=== PATIENT | female | born 1980 | race Caucasian/White ===

== ENCOUNTER 2016-11-06 17:46 | Emergency (ER) | payer BC ==
--- NOTE | ~2016-11-06 | CT2 ---
[facility] A Service of [facility] RADIOLOGY TEXT RESULTS PATIENT: DEYSI ELLINGTON LOCATION: SED : [birth year] UNIT #: [id number] AGE: [address]: Zeeshan Meza SEX: F ORDER DR: [id number] [address] [address] [id number] E MR#: [id number] Acc #: [id number] NAME: DEYSI ELLINGTON : 1980 SEX: F STUDY DATE/TIME: 11/06/2016 19:33 UNIT: SED ROOM: STUDY DESCRIPTION: CT Abd and Pelv W Cont Attending Physician: Zeeshan Meza P.A.-C. Ordering Physician: Zeeshan Meza P.A.-C. Primary Care Physician: Primary Care Physician No MEDICAL IMAGING REPORT This report is preliminary unless electronic signature is present. EXAM Abdomen and pelvis CT with contrast, 11/06/2016 INDICATIONS 36-year-old male with abdominal pain under the left breast and nausea and vomiting for 4 days. TECHNIQUE Contrast-enhanced abdomen and pelvis CT was performed. No comparisons. This CT exam was performed with one or more of the following radiation dose reduction techniques: Automatic exposure control, adjustment of mA and/or kV according to patient size, and iterative reconstruction. FINDINGS CT ABDOMEN: Included lung bases are clear. There is no effusion or pericardial effusion. Aorta unremarkable. Spleen, adrenal glands and pancreas are unremarkable. Gallbladder contracted. Liver demonstrates fatty infiltration. There is motion degradation. Kidneys demonstrate no inflammatory change or hydronephrosis. There is incomplete rotation of the right kidney as an anatomic variant. CT PELVIS: Bladder unremarkable, no adnexal mass or drainable fluid collection. Incidental dominant follicle or small cyst in the left ovary measures 2.9 cm. Dominant small cyst in the right ovary measures 3.3 cm. These have physiologic features on CT. Bowel unremarkable. Appendix normal. Inguinal canals unremarkable. No suspicious bone lesion. IMPRESSION 1. Negative contrast-enhanced abdomen and pelvis CT. The appendix [facility] A Service of [facility] RADIOLOGY TEXT RESULTS PATIENT: DEYSI ELLINGTON [place] [facility] [place] [birth year] UNIT #: [id number] AGE: [address]: Zeeshan Meza PAC SEX: F ORDER DR: is normal. Incidental fatty infiltration of the liver and cysts in both ovaries that appear physiologic. Dictated by... Mateus Jackson M.D. THIS IS AN ELECTRONICALLY VERIFIED REPORT Mateus Jackson M.D. at 11/07/2016 10:19 AM DENISE/michaelle TD: 11/07/2016 02:05 JOB #: [id number] MEDICAL IMAGING REPORT
[2016-11-06 17:14] LABS: URINE SOURCE CLEAN CATCH
[2016-11-06 17:20] LABS: URINE APPEARANCE CLEAR; URINE BILIRUBIN NEG (NEG); URINE BLOOD TRACE-INTACT (NEG); URINE COLOR YELLOW; URINE GLUCOSE 100 MG/DL (NORM); URINE KETONE NEG (NEG); URINE LEUKOCYTE ESTERASE NEG (NEG); URINE NITRATE NEG (NEG); URINE PROTEIN NEG (NEG); URINE SPECIFIC GRAVITY 1.025 (1.003-1.035); URINE UROBILINOGEN 0.2 MG/DL (NORM)
[2016-11-06 17:22] LABS: MICRO INDICATED? YES
[2016-11-06 17:33] LABS: CULTURE INDICATED? NO; URINE BACTERIA NEG (NEG); URINE RBC 0-2 /[HPF] (0-2); URINE WBC 0-2 /[HPF] (0-5)
[~2016-11-06 17:46] MED LIST: ALBUTEROL17 GM INH; ASPIRIN PO; ATARAX PO; DOXYCYCLINE PO; HYDROCODONE/HO240 ML PO; MEDROL PO; NO MEDICATIONS; PHENERGAN W/CO120 ML PO; PHENERGAN25 M1 PO; PREDNISONE PO; TESSALON200 MG PO
[2016-11-06 18:46] LABS: BASOPHIL# 0.1 X10e3 (0-0.3); BASOPHIL% 1.3 % (0-2.5); EOSINOPHIL# 0.4 X10e3 (0-0.7); EOSINOPHIL% 4.7 % (0.0-7.0); HEMATOCRIT 43.2 % (35.0-45.0); HEMOGLOBIN 14.4 gm/dL (12.0-16.0); LYMPHOCYTE# 2.1 X10e3 (1.0-3.5); LYMPHOCYTE% 23.8 % (17.0-45.0); MEAN CORPUSCULAR HEMOGLOBIN 28.9 PG (28-34); MEAN CORPUSCULAR HGB CONC 33.3 g/dL (30-36); MEAN PLATELET VOLUME 9.5 FL (6.5-11.5); MONOCYTE# 0.5 X10e3 (0-1.0); MONOCYTE% 5.3 % (3.0-12.0); NEUTROPHIL# 5.6 X10e3 (1.5-7.1); NEUTROPHIL% 64.9 % (40-75); PLATELET COUNT 226 X10e3 (140-420); RED BLOOD COUNT 4.96 X10e (3.90-5.30); RED CELL DISTRIBUTION WIDTH 14.8 % (11.0-15.5); WHITE BLOOD COUNT 8.6 X10e3 (4.0-10.5)
[2016-11-06 18:50] LABS: DIFF IND NO
[2016-11-06 19:06] LABS: ALKALINE PHOSPHATASE 58 U/L (32-92); ALT (SGPT) 32 U/L (10-40); AST (SGOT) 33 U/L (10-42); BILIRUBIN, DIRECT 0.1 mg/dL (0.0-0.2); BILIRUBIN,INDIRECT 0.2 mg/dL (0.0-0.9); BILIRUBIN,TOTAL 0.3 mg/dL (0.2-2.0); BLOOD UREA NITROGEN 10 mg/dL (9-23); BUN/CREATININE RATIO 16.66; CALCIUM SERUM 8.9 mg/dL (8.4-10.2); CARBON DIOXIDE 25 mmol/L (22-31); CHLORIDE 99 mmol/L (100-111); CREATININE SERUM 0.6 mg/dL (0.6-1.4); GLOM FILT RATE Estimated ABOVE60 mL/min (>60); GLUCOSE FASTING 159 mg/dL (70-110); LIPASE 37 U/L (22-51); PROTEIN TOTAL SERUM 7.5 g/dL (6.0-8.3); SODIUM 130 mmol/L (135-145)
[2016-12-15] MEDS ORDERED: ALLERGY RELIEF10 M1 PO (13:58)
== END 2016-11-06 20:43 | disposition home or self-care (01) ==
LOC: SED 17:46
PROVIDERS: Physician Assistant
DX: R10.11 Right upper quadrant pain (principal); F17.210 Nicotine dependence, cigarettes, uncomplicated
CPT/HCPCS: 36415; 74177; 80048; 80076; 81003; 83690; 84703; 85025; 96361; 96374; 96375; 99284; C9113; J2405; Q9967

== ENCOUNTER → 2016-11-20 | Outpatient (CLI) | payer BC ==
[~2016-11-20] MED LIST changes: +ALLERGY RELIEF10 M1 PO
--- NOTE | ~2016-11-20 | NM22 ---
[facility] A Service of [facility] RADIOLOGY TEXT RESULTS PATIENT: DEYSI ELLINGTON LOCATION: [facility] : [birth year] UNIT #: [id number] AGE: [address]: Zeeshan Wang MD SEX: F ORDER DR: [id number] [facility] [address] [place], [place] [address] [id number] O MR#: [id number] Acc #: [id number] NAME: DEYSI ELLINGTON : 1980 SEX: F STUDY DATE/TIME: 11/20/2016 9:24 UNIT: [facility] ROOM: STUDY DESCRIPTION: MARIANO Hepatobiliary W GB Pharm Attending Physician: Zeeshan Wang M.D. Ordering Physician: Zeeshan Wang M.D. Primary Care Physician: No Primary Care Physician MEDICAL IMAGING REPORT This report is preliminary unless electronic signature is present EXAM HIDA scan, 11/20/2016. HISTORY Right upper quadrant abdominal pain, right flank pain, and epigastric pain with low back pain, nausea, and vomiting, diarrhea, loss of appetite for 1 1/2 months. FINDINGS The patient received an intravenous injection of 5.21 mCi of technetium 99m tagged Choletec for hepatobiliary imaging. 15-minute sequential images of the upper abdomen were obtained and delayed images were obtained at both 90 minutes and 120 minutes postinjection of the radiopharmaceutical. There was homogeneous distribution of the radiotracer throughout the liver. Biliary activity and small bowel activity were both seen 15 minutes postinjection of the radiopharmaceutical. However, no gallbladder activity was seen after 2 hours of imaging. Findings are characteristic of cystic duct obstruction and possible cholecystitis. Clinical correlation is recommended. IMPRESSION Nonvisualization of the gallbladder after 2 hours of imaging. Findings are characteristic of cystic duct obstruction and possible cholecystitis. Clinical correlation recommended. STAT * RESULT Dictated by... Balwinder Mo M.D. THIS IS AN ELECTRONICALLY VERIFIED REPORT [facility] A Service of [facility] RADIOLOGY TEXT RESULTS PATIENT: DEYSI ELLINGTON LOCATION: [facility] #: [id number] : [birth year] UNIT #: [id number] AGE: [address]: Zeeshan Wang MD SEX: F ORDER DR: Balwinder Mo M.D. at 11/21/2016 7:59 AM RHODA/marilia TD: 11/20/2016 12:58 JOB #: [id number] MEDICAL IMAGING REPORT COPY
== END | disposition home or self-care (01) ==
LOC: CNUC 08:34
DX: R10.9 Unspecified abdominal pain (principal); K82.0 Obstruction of gallbladder
CPT/HCPCS: 78227; A9537

== ENCOUNTER → 2016-12-08 | Outpatient (CLI) | payer BC ==
--- NOTE | ~2016-12-08 | EKG ---
PATIENT: DEYSI ELLINGTON UNIT #: [id number] Ventricular Rate: 72 BPM Atrial Rate: 72 BPM P-R Interval: 124 ms QRS Duration: 86 ms Q-T Interval: 384 ms QTC Calculation(Bezet): 420 ms P [place]: 63 degrees Calculated R [place]: 87 degrees Calculated T [place]: 33 degrees Diagnosis Line: Normal sinus rhythm Diagnosis Line: Normal ECG Early repolarization Diagnosis Line: No previous ECGs available Diagnosis Line: Confirmed by ANTONIO SOTO MD ([id number]) on 12/08/2016 Diagnosis Line: 4:43:56 PM INTERPRETING MD: CHARLES MERCADO
[2016-12-08 16:04] LABS: BUN/CREATININE RATIO 22.85; CALCIUM SERUM 9.2 mg/dL (8.4-10.2); CREATININE SERUM 0.7 mg/dL (0.6-1.4); GLOM FILT RATE Estimated 111.5 mL/min (>60); POTASSIUM 3.9 mmol/L (3.5-5.1)
== END | disposition home or self-care (01) ==
LOC: CAMB 13:39
PROVIDERS: Surgery
DX: Z01.818 Encounter for other preprocedural examination (principal); R10.11 Right upper quadrant pain
CPT/HCPCS: 36415; 80048; 93005

== ENCOUNTER → 2016-12-15 | Day surgery (SDC) | payer BC ==
--- NOTE | ~2016-12-15 | OR ---
Unit #: [id number] #: [id number] Patient: DEYSI ELLINGTON [id number] [address] [address] [id number] O MR#: [id number] NAME: DEYSI ELLINGTON ROOM: Date of Procedure: 12/15/2016 Admission Date: 12/15/2016 Surgeon: Zeeshan Wang M.D. : 1980 Attending Physician: Zeeshan Wang M.D. Primary Care Physician: Primary Care Physician No OPERATIVE REPORT PREOPERATIVE DIAGNOSIS Chronic cholecystitis. POSTOPERATIVE DIAGNOSIS Chronic cholecystitis. PROCEDURE PERFORMED Laparoscopic cholecystectomy. DEVELOPMENT DISABILITY SPECIALIST Willi Rey M.D. ANESTHESIA General endotracheal anesthesia. ESTIMATED BLOOD LOSS Minimal. IV FLUIDS 800 crystalloid. COMPLICATIONS None. INDICATIONS FOR PROCEDURE The patient is a 36-year-old, who presents with chronic cholecystitis. DESCRIPTION OF PROCEDURE The patient was taken to the operative theater and placed in a supine position. General anesthesia was induced. The abdomen was prepped and draped. A 5-mm Optiview trocar was placed in the right upper quadrant without difficulty. The abdomen was insufflated to 15 mmHg with CO2. Under direct vision, I placed a subxiphoid 10 mm, right lateral 5 mm, umbilical 5 mm. General inspection of the abdomen revealed gallbladder with adhesions. These were taken down. The gallbladder was retracted up over the liver. I dissected the neck of the gallbladder and identified the cystic duct. The junction of the gallbladder was confirmed, it was thus skeletonized, doubly hemoclipped, and divided. The cystic artery laid immediately posterior. This was skeletonized, doubly hemoclipped, and divided. The gallbladder was removed from the gallbladder bed with Bovie electrocautery and delivered via the subxiphoid port. Hemostasis was adequate. I removed the ports and closed the fascia with 0 Vicryl and Unit #: [id number] #: [id number] Patient: DEYSI ELLINGTON skin with 4-0 Vicryl. The patient tolerated the procedure well, and sent to the recovery room in good condition. Dictated by... Yinka Reid/kayleigh TD: 12/15/2016 09:37 JOB #: [id number] OPERATIVE REPORT Page 1 of 1 X Zeeshan Wang MD PROCEDURE OPERATIVE NOTE
== END | disposition home or self-care (01) ==
LOC: CSUR 05:34
DX: K81.1 Chronic cholecystitis (principal); L92.8 Other granulomatous disorders of the skin and subcutaneous tissue; J45.909 Unspecified asthma, uncomplicated; E11.9 Type 2 diabetes mellitus without complications; K21.9 Gastro-esophageal reflux disease without esophagitis; F17.210 Nicotine dependence, cigarettes, uncomplicated
CPT/HCPCS: 82947; 84703; 88304; J0131; J0330; J0461; J0690; J1644; J2250; J2405; J3010